=== PATIENT | male | born 1930 | race African-American/Black ===

== ENCOUNTER 2017-05-29 07:48 | Emergency (ER) | payer OTHER ==
[2017-05-29 08:07] VITALS: TEMP 97.8; BMI 16.7
--- NOTE | 2017-05-29 08:29 | PDOC ---
History of Present Illness - General Chief Complaint: Pain, Acute Stated Complaint: ABD PAIN Time Seen by Provider: 05/29/17 08:27 - History of Present Illness Initial Comments: 05/29/17 08:54 The patient is an 87 year old male with a history of HTN, HLD, BPH who presents for evaluation of urinary retention, abdominal pain and flank pain. The patient reports a 1 day history of inability to urinate with increasing suprapubic abdominal pain with associated left sided flank pain prompting his presentation to the ED for evaluation. He also endorses some chills as well as nausea and one episode of non-bilious, non-bloody vomiting. The patient reports he has had similar symptoms in the past due to his BPH and has required a colin catheter in the past. He otherwise denies fevers, SOB, chest pain, or changes with bowel movements. Past History - Past Medical History Allergies/Adverse Reactions: Allergies Allergy/AdvReac Type Severity Reaction Status Date / Time No Known Allergies Allergy Verified 05/29/17 07:57 Home Medications: Ambulatory Orders Amlodipine Besylate 5 mg PO DAILY 05/29/17 Aspirin 81 mg PO DAILY 05/29/17 Atorvastatin Ca [Lipitor] 40 mg PO HS 05/29/17 Brimonidine Tartrate/Timolol [Combigan Eye Drops] 1 drop OU BID 05/29/17 Cephalexin Monohydrate [Keflex -] 500 mg PO BID #14 capsule 05/29/17 Cyanocobalamin (Vitamin B-12) [Vitamin B-12] 1,000 mcg PO DAILY 05/29/17 Cyclopentolate HCl [Cyclogyl] 1 drop OS TID 05/29/17 Dorzolamide HCl [Trusopt] 1 drop OU TID 05/29/17 Finasteride 5 mg PO DAILY 05/29/17 Latanoprost 0.005% Eye Drops [Xalatan 0.005% Eye Drops -] 1 drop OU DAILY Lisinopril 20 mg PO DAILY 05/29/17 Metoprolol Succinate 25 mg PO DAILY 05/29/17 Prednisolone 1% Ophthalmic [Pred Forte 1% -] 1 drop OS QID 05/29/17 acetaZOLAMIDE [Diamox Sequels -] 500 mg PO DAILY 05/29/17 Cardiac Disorders: Yes ("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 No fevers, fatigue, malaise HEENT: No Rhinorrhea, nasal congestion, visual changes Cardiovascular: No chest pain, syncope, palpitations, lightheadedness Respiratory: No Cough, SOB, Hemoptysis, Gastrointestinal: Suprapubic abdominal pain, Nausea, Vomiting. No Constipation , Diarrhea, Melena Genitourinary: Oliguria, Dysuria, Left Flank Pain. No Hematuria, Musculoskeletal: No Myalgia, arthralgia Skin: No rashes, itching, bruising, pallor Neurologic: No Headache, Dizziness, Numbness, Weakness, or Tingling Psychiatric: No Hallucinations. No SI or HI *Physical Exam - Vital Signs Last Vital Signs Temp Pulse Resp BP Pulse Ox 97.8 F 74 16 141/61 99 05/29/17 07:58 05/29/17 07:58 05/29/17 07:58 05/29/17 07:58 05/29/17 07:58 - Physical Exam Comments: 05/29/17 09:14 General Appearance: Nourished. No Apparent Distress HEENT: EOMI, ELISE. No Pharyngeal Erythema, Tonsillar Exudate, Tonsillar Erythema Neck: No Cervical Lymphadenopathy Respiratory/Chest: Lungs Clear, Normal Breath Sounds. No Crackles, Rales, Rhonchi, Wheezing Cardiovascular: Regular Rhythm, Regular Rate. No Murmur, Gallops, Rubs Gastrointestinal/Abdominal: Normal Bowel Sounds, Soft. Suprapubic tenderness to palpation on exam. No Guarding, Rebound, Musculoskeletal: No CVA Tenderness Extremity: Normal Capillary Refill Integumentary: Normal Color, Dry, Warm Neurologic: Fully Oriented, Alert, Normal Mood/Affect, Normal Response, ED Treatment Course - LABORATORY CBC & Chemistry Diagram: 05/29/17 09:30 05/29/17 09:30 Medical Decision Making - Medical Decision Making 05/29/17 09:14 The patient is an 87 year old male with a history of HTN, HLD, BPH who presents for evaluation of urinary retention, abdominal pain and flank pain. Differential includes but is not limited to: Urinary Retention, BPH, UTI, Pyelonephritis, infectious, metabolic derangement. Given the patient's oliguria and history of BPH, it is likely the patient's symptoms are due to urinary retention. We will obtain a cbc, cmp, lipase, ua, urine culture to evaluate further. We will place a urinary colin catheter in the meantime and continue to monitor and reassess. 05/29/17 14:58 CBC, cmp, lipase were unremarkable. We obtained a gallbladder US due to an elevated t bili, which was unremarkable as read by our radiologist. UA demonstrates positive leuk esterase and wbc concerning for a UTI. We are comfortable discharging the patient home at this time on Keflex with Urology follow up. We discussed the results and the plan with the patient who voiced understanding and is agreeable with the plan. *DC/Admit/Observation/Transfer Diagnosis at time of Disposition: Urinary retention UTI (urinary tract infection) Qualifiers: Urinary tract infection type: site unspecified Hematuria presence: without hematuria Qualified Code(s): N39.0 - Urinary tract infection, site not specified - Discharge Dispostion Disposition: HOME Condition at time of disposition: Good Admit: No - Prescriptions Prescriptions: Cephalexin Monohydrate [Keflex -] 500 mg PO BID #14 capsule - Referrals Referrals: Rod Uribe [Primary Care Provider] - Gomez Gallagher MD., MD [Staff Physician] - - Patient Instructions Printed Discharge Instructions: How to Care for Your Colin Catheter -- Male, DI for Urinary Tract Infection (UTI), DI for Urinary Retention in Men Additional Instructions: Please return to the ER if you experience concerning or worsening symptoms including fevers, chills, worsening pain, or vomiting. Your lab results and ultrasound were normal here in the ER, but your urine shows some signs of infection. We have sent a prescription for antibiotics to your pharmacy that you should take twice a day for 7 days. It is extremely important that you call to schedule a follow up appointment with our Urologist ( Dr. Gallagher) within 2-3 days to discuss further management of your urinary retention. - Post Discharge Activity
--- NOTE | 2017-05-29 09:08 | PDOC ---
Attending Attestation - HPI HPI: 05/29/17 09:16 87 year old male with history of hypertension, hyperlipidemia, BPH, who presents to the ED for 1 day of urinary retention with suprapubic pain and left flank pain. Also reports associated nausea and NBNB vomiting. Endorses chills, no fevers. Symptoms became noticeably worse this morning, prompting his ED visit. Documentation prepared by Tatyana Reese, acting as medical laboratory technicians for Joy Brody MD. <Tatyana Reese - Last Filed: 05/29/17 09:16> - Resident Resident Name: Nehemias Median - ED Attending Attestation I have performed the following: I have examined & evaluated the patient, The case was reviewed & discussed with the resident, I agree w/resident's findings & plan, Exceptions are as noted - Physicial Exam PE: GENERAL: Awake, alert, and fully oriented, in no acute distress HEAD: No signs of trauma EYES: PERRLA, EOMI, sclera anicteric, conjunctiva clear ENT: Auricles normal inspection, hearing grossly normal, nares patent, oropharynx clear without exudates. Moist mucosa NECK: Normal ROM, supple, no lymphadenopathy, JVD, or masses LUNGS: Breath sounds equal, clear to auscultation bilaterally. No wheezes, and no crackles HEART: Regular rate and rhythm, normal S1 and S2, no murmurs, rubs or gallops ABDOMEN: Soft, +suprapubic tenderness with bladder distension. Normoactive bowel sounds. +Guarding, no rebound. No masses EXTREMITIES: Normal range of motion, no edema. No clubbing or cyanosis. No cords, erythema, or tenderness NEUROLOGICAL: Cranial nerves II through XII grossly intact. Normal speech, normal gait SKIN: Warm, Dry, normal turgor, no rashes or lesions noted. - Medical Decision Making Pt presents with urinary retention, back pain. Found to have bladder distension , +relief of symptoms with colin placement. TBili elevated, will obtain US to further evaluate, as there are no prior labs for comparison and patient is poor historian. <Joy Brody - Last Filed: 05/29/17 12:46>
[2017-05-29 11:05] LABS: BASO % 0.1 % (0-2.0); HEMATOCRIT 36.1 % (35.4-49); HEMOGLOBIN 12.3 GM/dL (11.7-16.9); LYMPH % 5.8 % (8-40); MCH 29.9 pg (25.7-33.7); MCHC 34.1 g/dl (32.0-35.9); MEAN CELL VOLUME 87.8 fl (80-96); MEAN PLT VOLUME 8.2 fl (7.5-11.1); NEUT % 87.1 % (42.8-82.8); PLATELET COUNT 227 K/MM3 (134-434); RBC 4.11 M/mm3 (4.00-5.60); RDW 15.9 % (11.9-15.9); WHITE BLOOD COUNT 10.8 K/mm3 (4.0-10.0)
[2017-05-29 11:18] LABS: URINE APPEARANCE CLOUDY; URINE BILIRUBIN NEGATIVE (NEGATIVE); URINE BLOOD NEGATIVE (NEGATIVE); URINE COLOR YELLOW; URINE GLUCOSE (UA) NEGATIVE (NEGATIVE); URINE KETONE NEGATIVE (NEGATIVE); URINE LEUK ESTERASE TRACE (NEGATIVE); URINE NITRITE NEGATIVE (NEGATIVE); URINE UROBILINOGEN NEGATIVE mg/dL (0.2-1.0)
[2017-05-29 11:25] LABS: URINE PROTEIN 1+ (NEGATIVE)
[2017-05-29 11:37] LABS: ALBUMIN 4.3 g/dl (3.4-5.0); ALK PHOS 81 U/L (45-117); ANION GAP 8 (8-16); BILIRUBIN,TOTAL 2.1 mg/dL (0.2-1.0); BLOOD UREA NITROGEN 26 mg/dL (7-18); CHLORIDE 104 mmol/L (98-107); CO2 29 mmol/L (21-32); CREATININE 1.2 mg/dL (0.7-1.3); GLUCOSE,RANDOM 132 mg/dL (74-106); LIPASE 149 U/L (73-393); POTASSIUM 3.9 mmol/L (3.5-5.1); SGOT/AST 20 U/L (15-37); SGPT/ALT 35 U/L (12-78); SODIUM 141 mmol/L (136-145); TOT PROT 7.3 g/dl (6.4-8.2)
[2017-05-29 15:32] VITALS: BP 173/70; PULSE 60
== END 2017-05-29 15:32 | disposition home or self-care (01) ==
LOC: JER 07:48
PROC: 0T9B70Z Drainage of Bladder with Drainage Device, Via Natural or Artificial Opening (ICD-10-PCS; principal; 2017-05-29)
DX: N39.0 Urinary tract infection, site not specified (principal); B95.2 Enterococcus as the cause of diseases classified elsewhere; B95.4 Other streptococcus as the cause of diseases classified elsewhere; N40.1 Benign prostatic hyperplasia with lower urinary tract symptoms; R33.8 Other retention of urine; I10 Essential (primary) hypertension; E78.00 Pure hypercholesterolemia, unspecified
CPT/HCPCS: 36415; 51702; 76705-TC; 80053; 81003; 81015; 83690; 85025; 87086; 87186; 99284-25

== ENCOUNTER 2017-06-09 09:15 | Emergency (ER) | payer OTHER ==
[2017-06-09 09:22] VITALS: TEMP 98.1; BMI 16.2
--- NOTE | 2017-06-09 10:04 | PDOC ---
History of Present Illness <Sola Metcalf - Last Filed: 06/09/17 10:54> - General History Source: Patient Exam Limitations: No Limitations - History of Present Illness Initial Comments: 06/09/17 09:59 Patient is an 87M with history of HLD, HTN, BPH, and urinary retention requiring colin placement 12 days ago, removed yesterday, coming in today with lower abdominal pain and urinary retention for about 16 hours. He states that he had his colin removed yesterday by his urologist and has not been able to urinate since. He complains of lower abdominal pain and distention, he states that this feels like his prior episode of urinary retention. Denies chest pain, shortness of breath, fevers, chills. 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") COPD: No DVT: No Disorders: Yes (BPH) HTN: Yes Hypercholesterolemia: Yes Other medical history: LEGALLY BLIND - Immunization History Immunization Up to Date: Yes - Suicide/Smoking/Psychosocial Hx Smoking History: Never smoked Have you smoked in the past 12 months: No If you are a former smoker, when did you quit?: 30yrs Information on smoking cessation initiated: No Hx Alcohol Use: No Drug/Substance Use Hx: No Substance Use Type: None <Wilian Santos - Last Filed: 06/09/17 11:27> - Past Medical History Allergies/Adverse Reactions: Allergies Allergy/AdvReac Type Severity Reaction Status Date / Time No Known Allergies Allergy Verified 06/09/17 09:17 Home Medications: Ambulatory Orders Amlodipine Besylate 5 mg PO DAILY 05/29/17 Aspirin 81 mg PO DAILY 05/29/17 Atorvastatin Ca [Lipitor] 40 mg PO HS 05/29/17 Brimonidine Tartrate/Timolol [Combigan Eye Drops] 1 drop OU BID 05/29/17 Cephalexin Monohydrate [Keflex -] 500 mg PO BID #14 capsule 05/29/17 Cyanocobalamin (Vitamin B-12) [Vitamin B-12] 1,000 mcg PO DAILY 05/29/17 Cyclopentolate HCl [Cyclogyl] 1 drop OS TID 05/29/17 Dorzolamide HCl [Trusopt] 1 drop OU TID 05/29/17 Finasteride 5 mg PO DAILY 05/29/17 Latanoprost 0.005% Eye Drops [Xalatan 0.005% Eye Drops -] 1 drop OU DAILY Lisinopril 20 mg PO DAILY 05/29/17 Metoprolol Succinate 25 mg PO DAILY 05/29/17 Prednisolone 1% Ophthalmic [Pred Forte 1% -] 1 drop OS QID 05/29/17 acetaZOLAMIDE [Diamox Sequels -] 500 mg PO DAILY 05/29/17 Sulfamethoxazole/Trimethoprim [Bactrim Ds -] 1 tab PO BID #14 tablet 06/09/17 Review of Systems - Review of Systems Comments:: 06/09/17 10:03 GENERAL/CONSTITUTIONAL: No fever or chills. No weakness. HEAD, EYES, EARS, NOSE AND THROAT: No change in vision. No sore throat. CARDIOVASCULAR: No chest pain or shortness of breath RESPIRATORY: No cough, wheezing, or hemoptysis. GASTROINTESTINAL: No nausea, vomiting, diarrhea or constipation. GENITOURINARY: No dysuria, unable to urinate MUSCULOSKELETAL: No joint or muscle swelling or pain. No neck or back pain. SKIN: No rash NEUROLOGIC: No headache, vertigo, loss of consciousness, or change in strength/ sensation. ENDOCRINE: No increased thirst. No abnormal weight change ALLERGIC/IMMUNOLOGIC: No hives or skin allergy. <Wilian Santos - Last Filed: 06/09/17 11:27> *Physical Exam - Vital Signs Last Vital Signs Temp Pulse Resp BP Pulse Ox 98.1 F 75 16 145/72 99 06/09/17 09:15 06/09/17 10:43 06/09/17 10:43 06/09/17 10:43 06/09/17 10:43 <Sola Metcalf - Last Filed: 06/09/17 10:54> - Vital Signs Last Vital Signs Temp Pulse Resp BP Pulse Ox 98.1 F 95 H 18 183/88 98 06/09/17 09:15 06/09/17 09:15 06/09/17 09:15 06/09/17 09:15 06/09/17 09:15 - Physical Exam Comments: 06/09/17 10:04 GENERAL: Awake, alert, and fully oriented, in no acute distress HEAD: No signs of trauma, normocephalic, atraumatic EYES: PERRLA, EOMI, sclera anicteric, conjunctiva clear ENT: Auricles normal inspection, hearing grossly normal, nares patent, oropharynx clear without exudates. Moist mucosa NECK: Normal ROM, supple, no lymphadenopathy, JVD, or masses LUNGS: No distress, speaks full sentences, clear to auscultation bilaterally HEART: Regular rate and rhythm, normal S1 and S2, no murmurs, rubs or gallops, peripheral pulses normal and equal bilaterally. ABDOMEN: Distended lower abdomen. Tender suprapubic tenderness. EXTREMITIES: Normal inspection, Normal range of motion, no edema. No clubbing or cyanosis. NEUROLOGICAL: Cranial nerves II through XII grossly intact. Normal speech, no focal sensorimotor deficits SKIN: Warm, Dry, normal turgor, no rashes or lesions noted. <Wilian Santos - Last Filed: 06/09/17 11:27> ED Treatment Course - LABORATORY CBC & Chemistry Diagram: 06/09/17 10:00 06/09/17 10:00 - ADDITIONAL ORDERS Additional order review: Laboratory Results 06/09/17 06/09/17 10:00 09:55 Sodium 137 Potassium 4.2 Chloride 104 Carbon Dioxide 27 Anion Gap 6 L BUN 23 H Creatinine 1.0 Creat Clearance w eGFR > 60 Random Glucose 134 H Calcium 9.2 Total Bilirubin 1.0 AST 34 ALT 44 H Alkaline Phosphatase 73 Total Protein 6.7 Albumin 4.1 Urine Color Yellow Urine Appearance Cloudy Urine pH 7.0 Ur Specific [place] 1.020 Urine Protein Negative Urine Glucose (UA) Negative Urine Ketones Negative Urine Blood Trace-intact H Urine Nitrite Negative Urine Bilirubin Negative Urine Urobilinogen 0.2 Ur Leukocyte Esterase 2+ H Urine RBC 0-3 Urine WBC 10-20 Ur Epithelial Cells Rare Urine Bacteria Rare 06/09/17 10:00 RBC 4.14 MCV 87.6 MCHC 33.7 RDW 14.3 MPV 7.8 <Sola Metcalf - Last Filed: 06/09/17 10:54> - LABORATORY CBC & Chemistry Diagram: 06/09/17 10:00 06/09/17 10:00 <Wilian Santos - Last Filed: 06/09/17 11:27> Medical Decision Making - Medical Decision Making 06/09/17 10:05 Patient is 87M with history of BPH, urinary retention, HLD, HTN here today with urinary retention, likely secondary to BPH with possible UTI. Vital signs stable. Placed colin without incidence, 500mL initial drainage. Patient says he feels better. Will evaluate further with ua, uc, cbc, cmp. Differential diaganosis includes, but is not limited to: obstruction, uti, pyelo. Believe pyelo is not likely due to lack of CVA tenderness. 06/09/17 11:15 UA shows +LE, 10-20 WBCs, last culture sensitive to everything but ampicillin. Will treat with bactrim. Sending home with colin in place and leg bag. Dr Duarte's office contacted, doctor not in office. Follow up scheduled for 11am in two days. Unable to get appointment for tomorrow due to impending inclement weather. Discharged home with return precautions. <Wilian Santos - Last Filed: 06/09/17 11:27> *DC/Admit/Observation/Transfer <Sola Metcalf - Last Filed: 06/09/17 10:54> - Discharge Dispostion Admit: No <Wilian Santos - Last Filed: 06/09/17 11:27> Diagnosis at time of Disposition: UTI (urinary tract infection), Urinary retention - Discharge Dispostion Disposition: HOME Condition at time of disposition: Good - Prescriptions Prescriptions: Sulfamethoxazole/Trimethoprim [Bactrim Ds -] 1 tab PO BID #14 tablet - Patient Instructions Printed Discharge Instructions: How to Care for Your Colin Catheter -- Male, DI for Urinary Retention in Men Additional Instructions: Please return if you have any new, worsening or concerning symptoms. A follow up appointment has been scheduled for you with your urologist on 06/11 at 11am.
[2017-06-09 10:12] LABS: URINE APPEARANCE Cloudy; URINE BILIRUBIN Negative (NEGATIVE); URINE GLUCOSE (UA) Negative (NEGATIVE); URINE KETONE Negative (NEGATIVE); URINE NITRITE Negative (NEGATIVE); URINE PROTEIN Negative (NEGATIVE); URINE UROBILINOGEN 0.2 (0.2-1.0)
[2017-06-09 10:17] LABS: URINE BLOOD Trace-intact (NEGATIVE); URINE COLOR YELLOW; URINE LEUK ESTERASE 2+ (NEGATIVE)
[2017-06-09 10:31] LABS: HEMATOCRIT 36.2 % (35.4-49); HEMOGLOBIN 12.2 GM/dl (11.7-16.9); MCH 29.5 pg (25.7-33.7); MCHC 33.7 g/dl (32.0-35.9); MEAN CELL VOLUME 87.6 fl (80-96); MEAN PLT VOLUME 7.8 fl (7.5-11.1); PLATELET COUNT 253 K/MM3 (134-434); RBC 4.14 M/mm3 (4.00-5.60); RDW 14.3 % (11.9-15.9)
[2017-06-09 10:35] LABS: ALBUMIN 4.1 g/dl (3.5-5.0); ALK PHOS 73 U/L (32-92); ANION GAP 6 (8-16); BLOOD UREA NITROGEN 23 mg/dl (7-18); CALCIUM 9.2 mg/dl (8.4-10.2); CHLORIDE 104 mmol/L (98-107); CO2 27 mmol/L (22-28); GLUCOSE,RANDOM 134 mg/dl (74-106); POTASSIUM 4.2 mmol/L (3.5-5.1); SGOT/AST 34 U/L (10-42); SGPT/ALT 44 U/L (10-40); SODIUM 137 mmol/L (136-145); TOT PROT 6.7 g/dl (6.4-8.3)
[2017-06-09 10:39] LABS: EPI CELLS RARE /HPF; URINE BACTERIA RARE /hpf (NEGATIVE); URINE RBC 0-3 /hpf (0-3)
[2017-06-09 10:44] VITALS: BP 145/72; PULSE 75
--- NOTE | 2017-06-09 11:05 | PDOC ---
Attending Attestation - Resident Resident Name: Wilian Santos - ED Attending Attestation I have performed the following: I have examined & evaluated the patient, The case was reviewed & discussed with the resident, I agree w/resident's findings & plan, Exceptions are as noted - HPI HPI: Urinary retention Hernandez removed yesterday 700cc urine drained after easy Hernandez insertion Leg bag , Will follow with DR Stephanie Duarte 06/09/17 11:05 - Physicial Exam PE: Suprapubic discomfort and mild to moderate tenderness 06/10/17 15:24 - Medical Decision Making Follow up with his Urologist 06/09/17 11:08 06/10/17 15:15 Diagnosis: Acute Urinary Retention
[2017-06-09] MEDS ORDERED: SULFAMETHOXAZOLE/TRIMETHOPRIM 800MG/160MG D.S. TABLET PO ONE (11:08)
[2017-06-09] MEDS ORDERED: SULFAMETHOXAZOLE/TRIMETHOPRIM 800MG/160MG D.S. TABLET ONE (11:11)
== END 2017-06-09 11:20 | disposition home or self-care (01) ==
LOC: FER 09:15
PROC: 0T9B70Z Drainage of Bladder with Drainage Device, Via Natural or Artificial Opening (ICD-10-PCS; principal; 2017-06-09)
DX: N39.0 Urinary tract infection, site not specified (principal); R33.9 Retention of urine, unspecified; N40.0 Benign prostatic hyperplasia without lower urinary tract symptoms; I10 Essential (primary) hypertension; E78.5 Hyperlipidemia, unspecified
CPT/HCPCS: 36415; 80053; 81003; 81015; 85027; 87086; 87186; 99282-25